=== PATIENT | male | born 1965 | race Caucasian/White ===

== ENCOUNTER 2021-11-12 13:38 | Outpatient (CLI) | payer BC, SELFPAY | END 2021-11-12 23:59 | disposition short-term general hospital (02) | LOC: LABSPEC 13:39 | PROVIDERS: Referring Provider Physician Assistant Surgical; Visit Provider Physician Assistant Surgical | DX: U07.1 COVID-19 (principal) | CPT/HCPCS: 87635; U0003; U0005 ==

== ENCOUNTER → 2025-09-24 | Outpatient (CLI) | payer BC, SELFPAY ==
[2025-09-24 12:15] LABS: Hematocrit 41.1 % (40-54); Hemoglobin 14.1 g/dL (13.0-16.5); Immature Granulocytes Count 0.010 X10^3/uL (0.0-0.0); Mean Corp Hgb Conc 34.3 g/dL (32-36); Mean Corpuscular Volume 88.4 fL (80-94); Mean Platelet Vol. 9.7 fl (6.2-12.0); NRBC Flagged by Analyzer 0 % (0-5); Platelet Count 166 K/mm3 (150-450); RBC Distribution Width CV 13.0 % (11.6-14.6); RBC Distribution Width SD 41.6 fl (35.1-43.9); Red Blood Count 4.65 M/mm3 (4.6-6.2); White Blood Count 6.7 K/mm3 (4.4-11.0)
[2025-09-24 12:57] LABS: AST(SGOT) 23 U/L (<=37); Alanine Aminotransfer ALT/SGPT 15 U/L (<=46); Albumin, Serum 4.1 g/dL (3.5-5.0); Alkaline Phosphatase 64 U/L (40-129); Anion Gap 10 (5-15); BUN 20 mg/dL (4-19); BUN/Creat Ratio 16.3 RATIO (10-20); Calcium,Total 9.5 mg/dL (7.6-11.0); Carbon Dioxide 24.2 mmol/L (21.0-32.0); Chloride 107 mmol/L (98-108); Cholesterol 235 mg/dL (<=200); Globulin 3.0 g/dL (2.2-4.2); Glucose 90 mg/dL (70-99); Low Density Lipoprotein Calc. 169 mg/dL; PSA,Total - Annual Screen 0.81 ng/mL (0.02-4.00); Potassium 4.2 mmol/L (3.3-5.1); Triglycerides 96 mg/dL; Very Low Density Lipoprotein 19 mg/dL (5-40); cholesterol:hdl ratio screen 4.84
== END | disposition home or self-care (01) ==
LOC: BFHLAB 11:09
PROVIDERS: PCP Nurse Practitioner Family; Visit Provider Nurse Practitioner Family
DX: Z00.01 Encounter for general adult medical examination with abnormal findings (principal); Z12.5 Encounter for screening for malignant neoplasm of prostate
CPT/HCPCS: 36415; 80053; 80061; 84153; 85025; G0103